=== PATIENT | female | born 1975 ===

== ENCOUNTER 2021-09-09 08:00 | Outpatient (CLI) | payer OTHER ==
[~2021-09-09 08:00] MED LIST: HUMALOG100 U/M1
== END 2021-09-09 08:30 | disposition home or self-care (01) ==
LOC: PPH VACUNA 08:00
PROVIDERS: ATTEND Emergency Medicine Pediatric Emergency Medicine
DX: Z23 Encounter for immunization (principal)

== ENCOUNTER 2022-07-28 08:18 | Inpatient (IN) | payer OTHER ==
[~2022-07-28] VITALS: Ht 172.7 cm; Wt 76.2 kg
[2022-07-28] MEDS ORDERED: HUMALOG100 UNIT/2 SQ (08:24)
[2022-07-28] MEDS ORDERED: AVAPRO150 MG PO (08:24)
[2022-07-28] MEDS ORDERED: HYDRALAZINE HC100 MG PO (08:25)
== END 2022-07-31 17:47 | disposition home or self-care (01) | DRG 305 ==
LOC: ER 08:18 → SEC-K 20:35 → MEDJ 07-30 16:31
PROVIDERS: ADMIT Internal Medicine; ATTEND Internal Medicine
PROC: BW28ZZZ Computerized Tomography (CT Scan) of Head (ICD-10-PCS; principal; 2022-07-28)
PROC: B345ZZZ Ultrasonography of Bilateral Common Carotid Arteries (ICD-10-PCS; 2022-07-28)
PROC: B348ZZZ Ultrasonography of Bilateral Internal Carotid Arteries (ICD-10-PCS; 2022-07-28)
PROC: B24BYZZ Ultrasonography of Heart with Aorta using Other Contrast (ICD-10-PCS; 2022-07-28)
PROC: 4A02XM4 Measurement of Cardiac Total Activity, External Approach (ICD-10-PCS; 2022-07-30)
PROC: C23GYZZ Positron Emission Tomographic (PET) Imaging of Myocardium using Other Radionuclide (ICD-10-PCS; 2022-07-30)
DX: I16.1 Hypertensive emergency (principal); I20.9 Angina pectoris, unspecified; E78.5 Hyperlipidemia, unspecified; I10 Essential (primary) hypertension; E11.9 Type 2 diabetes mellitus without complications; Z79.4 Long term (current) use of insulin

== ENCOUNTER 2025-05-25 10:26 | Outpatient (CLI) | payer OTHER ==
[~2025-05-25 10:26] MED LIST changes: +AVAPRO150 MG PO; +HUMALOG100 UNIT/2 SQ; +HYDRALAZINE HC100 MG PO
== END 2025-05-25 10:35 | disposition home or self-care (01) ==
LOC: MRI 10:26 → TOM 10:26 → MRI 10:35
PROVIDERS: ATTEND Internal Medicine Rheumatology
DX: M05.9 Rheumatoid arthritis with rheumatoid factor, unspecified (principal)
CPT/HCPCS: 73219; 73222